=== PATIENT | female | born 1940 | race Caucasian/White ===

== ENCOUNTER 2021-02-01 21:02 | Emergency (ER) | payer MEDICARE ==
--- OUTSIDE RECORDS SUMMARY | 2021-02-01 21:09 | XMS REPORT | Clinical Summary ---
Author Author [facility] Organization [facility] Address Unknown Phone Unavailable Care Team Providers Care Field Recorder Name Role Phone Luke Cerna MD PCP Allergies Not on File Medications Not on file Active Problems Not on file Social History Date Tobacco Use Types Packs/Day Years Used Never Assessed Sex Assigned at Date Recorded Not on file Last Filed Vital Signs Not on file Plan of Treatment Health Maintenance Due Date Last Done Comments Advance Directive has 1940 been filed Medicare Annual Wellness 1940 Td/Tdap# 1940 COVID-19 Vaccine (1) 1954 Zoster Vaccine# (1 of 2) 1992 Advance Directive 08/06/2007 Conversation Depression Screening 08/06/2007 PHQ-9 # Fall Risk Assessment # 08/06/2007 Osteoporosis Screening 08/06/2007 Patient Needs Advance 08/06/2007 Directive Pneumococcal Vaccine: 65+ 08/06/2007 Years (1 of 1 - PPSV23) Influenza Vaccine (#1) 2021 Results Not on filefrom Last 3 Months Insurance Type Payer Benefit Subscriber ID Effective Phone Address Plan / Dates Group Medicare MEDICARE MEDICARE [id number] 2007-P [place] PART A B [place], [place] COMMERCIAL-NONCONTRACTED AARP [id number] MEDICARE resent SUPPLEMENT [id number] Alondra Solis Personal/F Self 1940 [address] (Home) [place], [place] [address] Alondra Solis Personal/F Self 1940 [address] ([place]) [place], [place] [address] Advance Directives For more information, please contact: [phone] 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
[2021-02-01] MEDS ORDERED: OXYMETAZOLINE (AFRIN) 0.05% NA 30 ML BTL ONE (21:45)
--- NOTE | 2021-02-01 21:47 | ED Head Injury ---
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 She fell face first and pushed her glasses into the bridge of her nose where she now has a laceration on the right. No loss of consciousness or neck pain no headache. She is only on a baby aspirin daily. She has some epistaxis from the left. Occurred: just prior to arrival Severity: moderate Location: frontal Loss of Consciousness: no loss of consciousness (SHEELA HUNTER APRN) Allergies and Home Medications Allergies Coded Allergies: No Known Drug Allergies (Unverified , 02/01/21) Patient Home Medication List Home Medication List Reviewed: Yes (SHEELA HUNTER APRN) Amoxicillin (Amoxicillin) 500 Mg Capsule, 500 MG PO TID Prescribed by: SHEELA HUNTER on 02/01/212207 Review of Systems Review of Systems Constitutional: see HPI Eyes: No Symptoms Reported Ears, Nose, Mouth, Throat: no symptoms reported Respiratory: no symptoms reported Cardiovascular: no symptoms reported Genitourinary: no symptoms reported Musculoskeletal: no symptoms reported Skin: no symptoms reported Psychiatric/Neurological: No Symptoms Reported (SHEELA HUNTER APRN) Physical Exam Vital Signs Vital Signs - First Documented 02/01/21 21:20 Temp 36.4 Pulse 108 Resp 18 B/P (MAP) 174/88 (116) Pulse Ox 100 O2 Delivery Room Air (ARLEN,SEAN K DO) Vital Signs Capillary Refill : (SHEELA HUNTER APRN) Height, Weight, BMI Height: '" Weight: lbs. oz. kg; BMI Method: General Appearance: WD/WN, no apparent distress HEENT: PERRL/EOMI, normal ENT inspection, TMs normal, other (\\small abrasion to the right side of the bridge of the nose. Significant swelling and edema to the nose. Oozing of blood from left nostril. Extraocular muscles are intact, no globe injury.) Neck: non-tender, full range of motion Respiratory: no respiratory distress, no accessory muscle use Gastrointestinal: normal bowel sounds, non tender Extremities: normal range of motion, non-tender Psychiatric: alert, oriented x 3 Crainal Nerves: normal hearing, normal speech, PERRL Motor/Sensory: no motor deficit, no sensory deficit Skin: normal color, warm/dry (SHEELA HUNTER APRN) [place] Coma Score Best Eye Response: (4) Open Spontaneously Best Verbal Response: (5) Oriented Best Motor Response: (6) Obeys Commands [place] Total: 15 (SHEELA HUNTER APRN) Departure Communication (Admissions) Family Conversation The abrasion to the bridge of the nose was cleansed with chlorhexidine/saline solution. This is actually more of a small puncture wound. This was closed with skin affix for the sake of hemostasis. NAME: CRYSTAL GONZALEZ [facility] REC#: [id number] PT STATUS: REG ER : 1940 PHYSICIAN: SHEELA HUNTER APRN ADMIT DATE: 02/01/21/ER Draft Date of Exam:02/01/21 CT HEAD/FACE/CERVICAL WO PROCEDURE: CT head, face, and cervical spine without contrast. TECHNIQUE: Multiple contiguous axial images were obtained through the head, neck, and facial bones without the use of intravenous contrast. Sagittal and coronal reformations through the cervical spine and facial bones were also performed. Auto Exposure Controls were utilized during the CT exam to meet ALARA standards for radiation dose reduction. INDICATION: Fall, pain. COMPARISON: None. CT HEAD: There is no intracranial hemorrhage, hydrocephalus, edema, mass, mass effect or evidence for an elevation of the intracerebral pressures. No pneumocephalus. No calvarial fracture deformity. Mastoid air cells clear. There is intracranial atherosclerotic vascular calcifications. Cerebral cortical volume unremarkable for age. CT CERVICAL SPINE: There are degenerative changes to the discs, endplates, facets and uncovertebral joints throughout the cervical spine with no fracture or facet joint dislocation. There is moderate canal stenosis at C2-C3 with moderate with a severe with more severe canal stenosis at C3-C4, C4-C5, C5-C6 and C6-C7 where there is moderate to severe biforaminal bony stenosis. No fracture, bony destruction or traumatic malalignment. No paravertebral mass, hemorrhage or fluid collection. Carotid atherosclerotic vascular calcifications. CT FACIAL BONES: There are fractures of the right greater than left nasal bones. The distal aspect of the right nasal bone fracture shows mild midline deviation. There is a fracture through the distal tip of the nasal septum. The anterior and posterior badillo of the frontal sinus are intact. There is no orbital fracture. There is substantial right greater than left perinasal soft tissue swelling. No postseptal or retrobulbar hematoma. There is right-sided preseptal soft tissue hematoma. Zygomatic arch is intact. Pterygoid plates intact. The mandible intact. There is a mucus retention cyst in the right maxillary sinus. The maxillary and bony orbital badillo intact. IMPRESSION: 1. CT head: No acute intracranial pathology. 2. CT cervical spine: Advanced degenerative changes and multilevel chronic canal and foraminal stenoses; however, no fracture. 3. CT facial bones: Nasal septal and nasal bone fractures with soft tissue swelling. No other facial fracture or hemo-sinus. Dictated on workstation # [id number] Dict: 02/01/212212 Trans: 02/01/212232 [facility] [id number] Interpreted by: ROSALINA ATKINS Electronically signed by: (SHEELA HUNTER APRN) Impression Primary Impression: Epistaxis due to trauma Additional Impression: Nasal bone fracture Disposition: 01 HOME, SELF-CARE Condition: Stable Departure-Patient Inst. Decision time for Depature: 22:07 (SHEELA HUNTER APRN) Referrals: NO,LOCAL PHYSICIAN (PCP/Family) Primary Care Physician Patient Instructions: Nose Fracture ED Add. Discharge Instructions: 1. Follow-up with an nurse research of your choosing next week. Ice pack to the area tonight to help reduce swelling. You should not blow your nose for the next 2 weeks. If you feel nasal congestion or recurrent bleeding then squirt 1-2 squirts of Afrin up the nose twice a day for up to 3 days but not more than that. Take the antibiotics as directed and return to ER for any worsening. All discharge instructions reviewed with patient and/or family. Voiced understanding. Scripts Amoxicillin (Amoxicillin) 500 Mg Capsule 500 MG PO TID, #21 CAP 0 Refills Prov: SHEELA HUNTER APRN 02/01/21 ATTENDING PHYSICIAN NOTE: I WAS PHYSICALLY PRESENT ER PHYSICIAN WHEN THIS PATIENT WAS IN ER, BUT I WAS NOT INVOLVED IN DECISION MAKING OR ANY CARE OF THIS PATIENT. (SEAN MCKINLEY DO) SHEELA HUNTER APRN Feb 01, 2021 21:47 SEAN MCKINLEY DO Feb 03, 2021 04:36
[2021-02-01] MEDS ORDERED: AMOX500C2 PO (22:08)
--- NOTE | 2021-02-01 22:33 | Diagnostic Imaging Report ---
PROCEDURE: CT head, face, and cervical spine without contrast. TECHNIQUE: Multiple contiguous axial images were obtained through the head, neck, and facial bones without the use of intravenous contrast. Sagittal and coronal reformations through the cervical spine and facial bones were also performed. Auto Exposure Controls were utilized during the CT exam to meet ALARA standards for radiation dose reduction. INDICATION: Fall, pain. COMPARISON: None. CT HEAD: There is no intracranial hemorrhage, hydrocephalus, edema, mass, mass effect or evidence for an elevation of the intracerebral pressures. No pneumocephalus. No calvarial fracture deformity. Mastoid air cells clear. There is intracranial atherosclerotic vascular calcifications. Cerebral cortical volume unremarkable for age. CT CERVICAL SPINE: There are degenerative changes to the discs, endplates, facets and uncovertebral joints throughout the cervical spine with no fracture or facet joint dislocation. There is moderate canal stenosis at C2-C3 with moderate with a severe with more severe canal stenosis at C3-C4, C4-C5, C5-C6 and C6-C7 where there is moderate to severe biforaminal bony stenosis. No fracture, bony destruction or traumatic malalignment. No paravertebral mass, hemorrhage or fluid collection. Carotid atherosclerotic vascular calcifications. CT FACIAL BONES: There are fractures of the right greater than left nasal bones. The distal aspect of the right nasal bone fracture shows mild midline deviation. There is a fracture through the distal tip of the nasal septum. The anterior and posterior badillo of the frontal sinus are intact. There is no orbital fracture. There is substantial right greater than left perinasal soft tissue swelling. No postseptal or retrobulbar hematoma. There is right-sided preseptal soft tissue hematoma. Zygomatic arch is intact. Pterygoid plates intact. The mandible intact. There is a mucus retention cyst in the right maxillary sinus. The maxillary and bony orbital badillo intact. IMPRESSION: 1. CT head: No acute intracranial pathology. 2. CT cervical spine: Advanced degenerative changes and multilevel chronic canal and foraminal stenoses; however, no fracture. 3. CT facial bones: Nasal septal and nasal bone fractures with soft tissue swelling. No other facial fracture or hemo-sinus. Dictated by: Dictated on workstation # [id number]
[2021-02-01 22:47] VITALS: BP 153/56
[2021-02-02] MEDS ORDERED: OXYMETAZOLINE (AFRIN) 0.05% NA 30 ML BTL SCH (09:00)
== END 2021-02-01 22:47 | disposition home or self-care (01) ==
LOC: ER 21:06
DX: S02.2XXA Fracture of nasal bones, initial encounter for closed fracture (principal); Z79.82 Long term (current) use of aspirin; W25.XXXA Contact with sharp glass, initial encounter
CPT/HCPCS: 70450; 70486; 72125